=== PATIENT | male | born 1995 | race Two or more races ===

== ENCOUNTER 2022-05-08 20:39 | Emergency (ER) | payer OTHER ==
[~2022-05-08] VITALS: Ht 172.7 cm; Wt 70.3 kg
[2022-05-09] MEDS ORDERED: CIPRO500 MG PO (02:24)
[2022-05-09] MEDS ORDERED: INTESTINEX680 M1 PO (02:24)
== END 2022-05-09 03:04 ==
LOC: ER 20:39
DX: K52.9 Noninfective gastroenteritis and colitis, unspecified (principal)